=== PATIENT | female | born 1970 | race Caucasian/White ===

== ENCOUNTER 2016-08-24 21:42 | Observation (INO) ==
[2016-08-24 23:25] LABS: Bilirubin,Urine Negative (Negative); Blood,Urine Negative (Negative); Clarity,Urine Cloudy (Clear); Color,Urine Yellow (Yellow); Glucose,Urine (UA) Normal (Normal); Ketones,Urine Negative (Negative); PH,Urine 6.5 pH Units (5.0-8.0); Protein,Urine Negative (Neg-Trace); Specific Gravity,Urine 1.024 (1.010-1.025); Urobilinogen,Urine Normal (Normal)
[2016-08-24 23:26] LABS: Leukocyte Esterase,Urine Small (Negative); Nitrite,Urine Positive (Negative)
[2016-08-24 23:27] LABS: Bacteria,Urine Many per hpf (None-Few); Hyaline Casts,Urine None Seen per lpf (None-Few); RBC,Urine 0-3 per hpf (0-3); Squamous Epithelial Cell,Urine Many per lpf (None-Few)
[2016-08-25 00:29] LABS: Alanine Aminotransferase 16 Units/L (0-55); Albumin 3.5 g/dL (3.5-5.0); Albumin/Globulin Ratio 0.9 (1.1-2.2); Alkaline Phosphatase 54 Units/L (38-126); Aspartate Amino Transferase 15 Units/L (5-34); BUN/Creatinine Ratio 14 (6-26); Bilirubin,Direct 0.2 mg/dL (0.0-0.5); Bilirubin,Indirect 0.3 mg/dL (0.0-1.2); Bilirubin,Total 0.5 mg/dL (0.2-1.2); Blood Urea Nitrogen 13 mg/dL (7-20); Calcium 9.3 mg/dL (8.6-10.8); Carbon Dioxide 27 mEq/L (19-29); Chloride 106 mEq/L (98-109); Globulin 3.9 g/dL (2.4-3.5); Glucose 80 mg/dL (70-99); Lipase 43 Units/L (8-78); Osmolality,Calculated 287 (280-300); Potassium 3.7 mEq/L (3.5-4.5); Sodium 139 mEq/L (136-145); Total Protein 7.4 g/dL (6.0-8.3); eGFR For African Americans > 60 (> 60); eGFR For Non-African Americans > 60 (> 60)
--- NOTE | 2016-08-25 00:55 | Emergency Department Note ---
Disposition Clinical Impression: Appendicitis Disposition: Admitted As Inpatient Condition: Good Time of Disposition: 06:12 Abdominal Pain HPI - General Chief Complaint: ED Abdominal Pain Stated Complaint: abd pain Time Seen by Provider: 08/24/16 23:52 Source: patient Mode of arrival: private vehicle Limitations: no limitations Nursing Notes Reviewed: Yes Vital Signs Reviewed: Yes - History of Present Illness HPI Narrative: 46-year-old female patient presents to the emergency department with complaint of abdominal pain. Patient states that this pain began approximately 36 hours ago and has progressively worsened. Patient states that her pain began in her upper abdomen but has now migrated to her right lower quadrant. She denies any fever, chills, nausea or vomiting. She denies any recent illnesses. She denies any previous abdominal surgeries. She denies any recent contact with sick individuals who have had similar symptoms. She denies any urinary complaints. She denies any vaginal discharge or bleeding. Pt Subjective Complaint: abdominal pain Onset (ago): hour(s) Consistency: intermittent, Worsening Location: periumbilical, RLQ Pain Severity: moderate Pain Scale: 5 Quality: fullness, dull Radiation: none Migration to: RLQ Improves with: nothing Worsens with: nothing Associated symptoms: Reports: denies other symptoms - Related Data Home Medications Medication Instructions Recorded Confirmed Acetaminophen/Butalbital/Caffe 1 tab PO DAILY PRN 08/25/16 08/25/16 [Fioricet] Previous Rx's Medication Instructions Recorded Docusate [Colace] 100 mg PO BID #30 capsule 08/26/16 OxyCODONE/APAP 5/325 [Percocet 1 each PO Q4HR PRN #30 tablet 08/26/16 5/325 MG] Sulfamethoxazole/Trimeth DS 1 each PO BID #10 tablet 08/26/16 [Bactrim DS] Allergies Allergy/AdvReac Type Severity Reaction Status Date / Time No Known Allergies Allergy Verified 08/24/16 23:07 All systems ED: reviewed and negative except as stated. Constitutional: Denies: fever, chills Cardiovascular: Denies: chest pain Respiratory: Denies: cough, dyspnea Gastrointestinal: Reports: abdominal pain. Denies: nausea, vomiting, diarrhea, constipation Musculoskeletal: Denies: back pain, neck pain Integumentary: Denies: rash, abrasion, lesions Neurological: Denies: headache Psychiatric: Denies: anxiety, depression, suicidal thoughts, homicidal thoughts Abdominal Pain PMH - Past Medical History Medical history: Reports: no medical history Female Surgical History: Reports: Adenoidectomy, Psychiatric history: Reports: no psych history - Social History Smoking status: Never smoker Alcohol use: Reports: none Drug use: Reports: none Physical Exam - General Limitations: no limitations General appearance: alert, in no apparent distress - Head Head exam: atraumatic, normocephalic, normal inspection - Eye Eye exam: Present: normal appearance, PERRL - Neck Neck exam: Present: normal inspection, full ROM, trachea midline - Chest Chest inspection: Present: normal inspection, symmetric chest wall rise - Respiratory Respiratory exam: Present: normal lung sounds bilaterally. Absent: respiratory distress - Cardiovascular Cardiovascular exam: Present: regular rate, normal rhythm, normal heart sounds - Abdominal Exam Abdominal exam: Present: soft, tenderness, normal bowel sounds, tenderness at [place]Bur[place]'s Point. Absent: distention, guarding, rebound, rigidity, Brown's sign, Rovsing's sign Abdominal tenderness: Present: RLQ, mild - Extremities Exam Extremities exam: Present: normal inspection, full ROM. Absent: tenderness, pedal edema - Expanded Lower Extremity Exam Gait: observed and normal - Back Exam Back exam: Present: normal inspection, full ROM. Absent: tenderness - Neurological Exam Neurological exam: Present: alert, oriented X3 - Psychiatric Psychiatric exam: Present: normal affect, normal mood - Skin Skin exam: Present: warm, dry, intact, normal color Course Vital Signs Temperature 97.9 F 08/24/16 23:03 Pulse Rate 70 08/24/16 23:03 Respiratory Rate 16 08/24/16 23:03 Blood Pressure 112/77 08/24/16 23:03 O2 Sat by Pulse Oximetry 98 08/24/16 23:03 Temperature 98.1 F 08/26/16 10:55 Pulse Rate 93 08/26/16 10:55 Respiratory Rate 17 08/26/16 10:55 Blood Pressure 114/61 08/26/16 10:55 O2 Sat by Pulse Oximetry 97 08/26/16 10:55 Oxygen Delivery Oxygen Delivery Room Air Abdominal Pain - Lab Data Lab results reviewed: Yes I reviewed the patient's lab results. Result diagrams: 08/26/16 04:30 08/26/16 04:30 Lab Results 08/24/16 08/24/1617 Range/Units 23:14 23:14 00:00 WBC (4.3-11.1) K/mcL RBC (3.82-4.97) M/mcL Hgb (11.5-15.4) g/dL Hct (35.3-44.9) % MCV (83.0-100.0) fL MCH (28.0-33.3) pg MCHC (31.6-35.5) g/dL RDW (11.5-14.5) % Plt Count (140-400) K/mcL MPV (9.4-12.4) fL Immature Gran % (0-4) % Seg Neutrophils % % Lymphocytes % % Monocytes % % Eosinophils % % Basophils % % Neutrophils # (1.6-8.9) K/mcL Lymphocytes # (0.6-4.6) K/mcL Monocytes # (0.0-1.3) K/mcL Eosinophils # (0.0-0.6) K/mcL Basophils # (0.0-0.2) K/mcL Immature Plt Fraction (1.1-6.1) % Sodium 139 (136-145) mEq/L Potassium 3.7 (3.5-4.5) mEq/L Chloride 106 (98-109) mEq/L Carbon Dioxide 27 (19-29) mEq/L BUN 13 (7-20) mg/dL Creatinine 0.95 (0.57-1.11) mg/dL Est GFR ( Amer) > 60 (> 60) Est GFR (Non-Af Amer) > 60 (> 60) BUN/Creatinine Ratio 14 (6-26) Glucose 80 (70-99) mg/dL Calculated Osmolality 287 (280-300) Calcium 9.3 (8.6-10.8) mg/dL Total Bilirubin 0.5 (0.2-1.2) mg/dL Direct Bilirubin 0.2 (0.0-0.5) mg/dL Indirect Bilirubin 0.3 (0.0-1.2) mg/dL AST 15 (5-34) Units/L ALT 16 (0-55) Units/L Alkaline Phosphatase 54 (38-126) Units/L Serum Total Protein 7.4 (6.0-8.3) g/dL Albumin 3.5 (3.5-5.0) g/dL Globulin 3.9 H (2.4-3.5) g/dL Albumin/Globulin Ratio 0.9 L (1.1-2.2) Lipase 43 (8-78) Units/L Urine Color Yellow (Yellow) Urine Clarity Cloudy A (Clear) Urine pH 6.5 (5.0-8.0) pH Units Ur Specific [place] 1.024 (1.010-1.025) Urine Protein Negative (Neg-Trace) mg/dL Urine Glucose (UA) Normal (Normal) mg/dL Urine Ketones Negative (Negative) mg/dL Urine Blood Negative (Negative) Urine Nitrite Positive A (Negative) Urine Bilirubin Negative (Negative) Urine Urobilinogen Normal (Normal) mg/dL Ur Leukocyte Esterase Small H (Negative) Urine Microscopic RBC 0-3 (0-3) per hpf Urine Microscopic WBC 5-15 H (0-3) per hpf Ur Squamous Epith Cells Many H (None-Few) per lpf Urine Bacteria Many H (None-Few) per hpf Hyaline Casts None Seen (None-Few) per lpf Ur Culture Indicated? YES A (NO) Urine Test Negative (Negative) Specimen Rejected 08/25/16 08/25/16 Range/Units 00:00 01:25 WBC 9.3 (4.3-11.1) K/mcL RBC 4.63 (3.82-4.97) M/mcL Hgb 13.7 (11.5-15.4) g/dL Hct 41.6 (35.3-44.9) % MCV 89.8 (83.0-100.0) fL MCH 29.6 (28.0-33.3) pg MCHC 32.9 (31.6-35.5) g/dL RDW 13.3 (11.5-14.5) % Plt Count 301 (140-400) K/mcL MPV 9.6 (9.4-12.4) fL Immature Gran % 0.4 (0-4) % Seg Neutrophils % 50.5 % Lymphocytes % 39.9 % Monocytes % 7.6 % Eosinophils % 1.3 % Basophils % 0.3 % Neutrophils # 4.7 (1.6-8.9) K/mcL Lymphocytes # 3.7 (0.6-4.6) K/mcL Monocytes # 0.7 (0.0-1.3) K/mcL Eosinophils # 0.1 (0.0-0.6) K/mcL Basophils # 0.0 (0.0-0.2) K/mcL Immature Plt Fraction 5.4 (1.1-6.1) % Sodium (136-145) mEq/L Potassium (3.5-4.5) mEq/L Chloride (98-109) mEq/L Carbon Dioxide (19-29) mEq/L BUN (7-20) mg/dL Creatinine (0.57-1.11) mg/dL Est GFR ( Amer) (> 60) Est GFR (Non-Af Amer) (> 60) BUN/Creatinine Ratio (6-26) Glucose (70-99) mg/dL Calculated Osmolality (280-300) Calcium (8.6-10.8) mg/dL Total Bilirubin (0.2-1.2) mg/dL Direct Bilirubin (0.0-0.5) mg/dL Indirect Bilirubin (0.0-1.2) mg/dL AST (5-34) Units/L ALT (0-55) Units/L Alkaline Phosphatase (38-126) Units/L Serum Total Protein (6.0-8.3) g/dL Albumin (3.5-5.0) g/dL Globulin (2.4-3.5) g/dL Albumin/Globulin Ratio (1.1-2.2) Lipase (8-78) Units/L Urine Color (Yellow) Urine Clarity (Clear) Urine pH (5.0-8.0) pH Units Ur Specific [place] (1.010-1.025) Urine Protein (Neg-Trace) mg/dL Urine Glucose (UA) (Normal) mg/dL Urine Ketones (Negative) mg/dL Urine Blood (Negative) Urine Nitrite (Negative) Urine Bilirubin (Negative) Urine Urobilinogen (Normal) mg/dL Ur Leukocyte Esterase (Negative) Urine Microscopic RBC (0-3) per hpf Urine Microscopic WBC (0-3) per hpf Ur Squamous Epith Cells (None-Few) per lpf Urine Bacteria (None-Few) per hpf Hyaline Casts (None-Few) per lpf Ur Culture Indicated? (NO) Urine Test (Negative) Specimen Rejected Clotted - Radiology Data Radiology results reviewed: Yes I reviewed the patient's radiology results. Attestation Statement - Attestation Attestation: I personally interviewed and examined this patient and my medical decision- making was reviewed with the KIMBERLY, Adrian Mendoza. I agree with the documented findings, disposition and treatment plan as described in the documentation. Patient is a 46-year-old white female otherwise healthy presents to the emergency department tonight with a 2 day history of gradually worsening right lower quadrant abdominal pain associated with nausea. Patient denies any fevers or chills, no vomiting or bowel changes, no urinary symptoms or flank pain. Patient denies any abnormal vaginal bleeding or spotting. Patient states the pain the entire time is been located in the right lower quadrant is nonradiating and gradually worsening in intensity. Patient states tonight she noticed that the pain was worse if she moved. Lab evaluation patient's comments metabolic panel and lipase are within normal limits her urinalysis does show cystitis. CBC is pending at this time. CT scan without IV contrast shows acute appendicitis with periappendiceal stranding. At this time we will inform the patient CT results, make her nothing by mouth status, initiate IV antibiotics and speak with Dr. Linares who is on for general surgery and admitted the patient for acute appendicitis. Pt with cystitis per UA , will initiate antibx IV. Serial abdominal exam patient is locally tender in the right lower quadrant but no peritoneal signs at this time and she is hemodynamically stable.
[2016-08-25] MEDS ORDERED: Piperacillin/Tazobactam 3.375 GM in D5% in Water (Mini-Bag+) 100 ML IVPB ONE (01:44)
[2016-08-25] MEDS ORDERED: Ondansetron 4 MG/2 ML VIAL IVP ONE (01:45)
[2016-08-25 02:30] LABS: Basophils % 0.3 %; Eosinophils # 0.1 K/mcL (0.0-0.6); Eosinophils % 1.3 %; Hematocrit 41.6 % (35.3-44.9); Hemoglobin 13.7 g/dL (11.5-15.4); Immature Granulocytes % 0.4 % (0-4); Immature Platelets 5.4 % (1.1-6.1); Lymphocytes # 3.7 K/mcL (0.6-4.6); Lymphocytes % 39.9 %; Mean Corpuscular HGB Conc 32.9 g/dL (31.6-35.5); Mean Corpuscular Hemoglobin 29.6 pg (28.0-33.3); Mean Corpuscular Volume 89.8 fL (83.0-100.0); Mean Platelet Volume 9.6 fL (9.4-12.4); Monocytes # 0.7 K/mcL (0.0-1.3); Monocytes % 7.6 %; Neutrophils # 4.7 K/mcL (1.6-8.9); Platelet Count 301 K/mcL (140-400); Red Blood Count 4.63 M/mcL (3.82-4.97); Red Cell Distribution Width 13.3 % (11.5-14.5); Segmented Neutrophils % 50.5 %
[2016-08-25 02:40] LABS: INR 1.1; Prothrombin Time 11.5 Seconds (9.4-12.1)
[2016-08-25 02:43] LABS: Activated Partial Thrombo Time 26.2 Seconds (26.0-36.0)
[2016-08-25] MEDS: *HR* Morphine 2 MG/ML SYRINGE IVP SCH ×4 (03:40→16:02)
--- NOTE | 2016-08-25 10:33 | General Surg History&Physical ---
<Ann Wallace A - Last Filed: 08/25/16 10:43> Date of Encounter: 08/25/16 Time of Encounter: 10:00 Assessment and Plan (1) RLQ abdominal pain Current Visit: Yes Status: Acute The assessment and plan as outlined above was discussed with the patient and/or family members who expressed understanding and agreement. All questions were answered. NPO IV fluids IV antibiotics- Zosyn Discussed the risks, benefits, alternatives and expected outcomes with the patient and she is in agreement to proceed to the operating room today with Dr. Linares for a laparosocpic appendectomy Supportive care/pain control Incentive Spirometer every 1 hour while awake (2) UTI (urinary tract infection) Current Visit: Yes Status: Acute The assessment and plan as outlined above was discussed with the patient and/or family members who expressed understanding and agreement. All questions were answered. Await culture results Treat empirically with Zosyn Qualifiers: Urinary tract infection type: site unspecified Hematuria presence: without hematuria Qualified Code(s): N39.0 - Urinary tract infection, site not specified (3) DVT prophylaxis Current Visit: Yes Status: Acute The assessment and plan as outlined above was discussed with the patient and/or family members who expressed understanding and agreement. All questions were answered. Ambulate hallways TID EPCDs to bilateral lower extremities for DVT prophylaxis History of Present Illness Chief complaint: RLQ abdominal pain HPI: Ms. James is a 46 year old female with no significant past medical history. She presented to the ED with complaints of a 2 day history of abdominal pain. She states that the pain started suddenly on Wednesday evening and was located around her umbilicus. She states that the pain slowly moved to her RLQ. The pain waxes and waines. Denies any radiating factors. She has never experienced pain like this in the past. She denies any changes in bowel habits and states that she did have a normal bowel movement yesterday. Denies any diarrhea/constipation/ melena/hematochezia. Denies any fevers/chills. Admits to nausea with increase in pain but denies any vomiting. Denies any difficulty with urination. Admits to loss of appetite. Denies any shortness of breath of chest pains. Past Med Surg Social Fam HX - Past Medical History Source: patient Medical history: no medical history Psychiatric history: no psych history - Past Surgical History Surgical History: (X3), orthopedic, other (Bilateral wrist (tendon)), other (Abdominoplasty) - Social History Smoking Status: Never smoker Alcohol use: none Drug use: none Occupational status: employed (Works for [employer] department at [employer]) Current living situation: Home - Independent Activity Level: Independent ambulation Recent Out of Country Travel Within the Last 8 Weeks: No Exposure or Possible Exposure to Illness During Travel: No - Family History Daughter Name: Curtis Mahoney Age: 25 Living Status: Still Living Hx Family Cardiac Disorders: Yes (Tachycardia) Hx Family Respiratory Disorders: No Hx Family Cancer: No Hx Family GI Disorders: No Hx Family Genitourinary Disorders: Yes (Hx of hematuria) Hx Family Endocrine Disorder: No Hx Family Musculoskeletal Disorders: Yes (weakness in legs, Fibromyalgia) Hx Family Neuromuscular Disorders: Yes (Neuropathy in arms/legs) Hx Family Neurologic Disorders: No Hx Family HEENT Disorders: No Hx Family Autoimmune Disorders: No Hx Family Reproductive Disorders: No Hx Family Psychosocial Disorders: Yes (Anxiety) Hx Family Medical Disorders: No Mother Living Status: Still Living Hx Family Neuromuscular Disorders: Yes (Neuropathy) Father Living Status: Still Living Hx Family Endocrine Disorder: Yes (Diabetes Mellitus) Medications and Allergies Acetaminophen/Butalbital/Caffe [Fioricet] 1 tab PO DAILY PRN 08/25/16 [History] Docusate [Colace] 100 mg PO BID #30 capsule 08/25/16 [Rx] OxyCODONE/APAP 5/325 [Percocet 5/325 MG] 1 each PO Q4HR PRN #30 tablet 08/25/16 [Rx] Allergies No Known Allergies Allergy (Verified 08/24/16 23:07) Review of Systems All systems PM: reviewed and no additional remarkable complaints except as stated (in the HPI) All systems PM: A 10-system review of systems was performed and is negative for pertinent findings except as documented above in the HPI. General Surgery Exam Initial Vital Signs Temp Pulse Resp BP Pulse Ox 97.9 F 70 16 112/77 98 08/24/16 23:03 08/24/16 23:03 08/24/16 23:03 08/24/16 23:03 08/24/16 23:03 - General physical appearance well developed, well nourished, no distress - Eyes normal ocular movement - ENT normal mucosa, atraumatic, normocephalic - Neck trachea midline - Respiratory normal expansion, normal respiratory effort, clear to auscultation - Abdomen Abdomen general surgery: Present: bowel sounds present, soft, tender Abdominal Tenderness: Present: RLQ, suprapubic - Integumentary Integumentary general surgery: Present: warm and dry - Neurologic Present: CN 2-12 grossly intact - Musculoskeletal Present: normal gait, normal posture - Psychiatric Psychiatric general surgery: Present: appropriate, oriented to person, oriented to place, oriented to time, speech is normal, memory intact Results - Labs 08/25/16 01:25 08/25/16 00:00 Abnormal lab results Globulin 3.9 g/dL (2.4-3.5) H 08/25/16 00:00 Albumin/Globulin Ratio 0.9 (1.1-2.2) L 08/25/16 00:00 Urine Clarity Cloudy (Clear) A 08/24/16 23:14 Urine Nitrite Positive (Negative) A 08/24/16 23:14 Ur Leukocyte Esterase Small (Negative) H 08/24/16 23:14 Urine Microscopic WBC 5-15 per hpf (0-3) H 08/24/16 23:14 Ur Squamous Epith Cells Many per lpf (None-Few) H 08/24/16 23:14 Urine Bacteria Many per hpf (None-Few) H 08/24/16 23:14 Ur Culture Indicated? YES (NO) A 08/24/16 23:14 All other labs normal. - Imaging CT scan - abdomen: report reviewed CT scan - pelvis: report reviewed Additional studies: Abdomen/Pelvis CT 08/25/16 00:37 IMPRESSION: Findings are suggestive of but not diagnostic for appendicitis. D/ / Hemanth Ortiz MD / Hemanth Ortiz MD Interpreting Provider: Hemanth Ortiz MD - Attending Attestation I examined this patient and my medical decision-making was reviewed with the ELEVATOR REPAIRER HELPER/PA/Advanced Practice Nurse/Resident Physician. I agree with the documented findings, disposition and treatment plan as described except to the extent set forth below. <Merna Linares - Last Filed: 08/26/16 10:02> Assessment and Plan (1) Acute appendicitis Current Visit: Yes Status: Acute discussed with patient that her symptoms are consistent with acute appendicitis and the CT scan suggests appendicitis. She has been receiving zosyn, is npo, receiving IVF and prn pain control. Will plan a laparoscopic appendectomy, possible open and risks and beneftis discussed with patient and she wishes to proceed. The assessment and plan as outlined above was discussed with the patient and/or family members who expressed understanding and agreement. All questions were answered. Qualifiers: Acute appendicitis type: unspecified acute appendicitis type Qualified Code (s): K35.80 - Unspecified acute appendicitis History of Present Illness HPI: Ms. James is a 46 year old female who developed mid abdominal pain on wednesday which she describes as sharp which has radiated to her RLQ. She denies emesis but had some nausea. No diarrhea. No dysuria. NO fevers, chills or night sweats. Review of Systems All systems PM: A 10-system review of systems was performed and is negative for pertinent findings except as documented above in the HPI. General Surgery Exam Initial Vital Signs Temp Pulse Resp BP Pulse Ox 97.9 F 70 16 112/77 98 08/24/16 23:03 08/24/16 23:03 08/24/16 23:03 08/24/16 23:03 08/24/16 23:03 - General physical appearance well nourished, no distress - Eyes PERRL, normal ocular movement - Neck trachea midline - Cardiovascular Cardiovascular exam: Present: RRR - Abdomen Abdomen general surgery: Present: bowel sounds present, soft, tender. Absent: guarding, rebound Abdominal Tenderness: Present: RLQ - Integumentary Integumentary general surgery: Present: warm and dry. Absent: diaphoresis - Psychiatric Psychiatric general surgery: Present: A&Ox3, speech is normal Results - Labs 08/26/16 04:30 08/26/16 04:30 Abnormal lab results Neutrophils # 9.3 K/mcL (1.6-8.9) H 08/26/16 04:30 Sodium 135 mEq/L (136-145) L 08/26/16 04:30 Calcium 8.0 mg/dL (8.6-10.8) L 08/26/16 04:30 Globulin 3.9 g/dL (2.4-3.5) H 08/25/16 00:00 Albumin/Globulin Ratio 0.9 (1.1-2.2) L 08/25/16 00:00 Urine Clarity Cloudy (Clear) A 08/24/16 23:14 Urine Nitrite Positive (Negative) A 08/24/16 23:14 Ur Leukocyte Esterase Small (Negative) H 08/24/16 23:14 Urine Microscopic WBC 5-15 per hpf (0-3) H 08/24/16 23:14 Ur Squamous Epith Cells Many per lpf (None-Few) H 08/24/16 23:14 Urine Bacteria Many per hpf (None-Few) H 08/24/16 23:14 Ur Culture Indicated? YES (NO) A 08/24/16 23:14 Diabetes panel 08/26/16 Range/Units 04:30 Sodium 135 L (136-145) mEq/L Potassium 4.3 (3.5-4.5) mEq/L Chloride 108 (98-109) mEq/L Carbon Dioxide 19 (19-29) mEq/L BUN 12 (7-20) mg/dL Creatinine 0.84 (0.57-1.11) mg/dL Glucose 97 (70-99) mg/dL Calcium 8.0 L (8.6-10.8) mg/dL Calcium panel 08/26/16 Range/Units 04:30 Calcium 8.0 L (8.6-10.8) mg/dL Pituitary panel 08/26/16 Range/Units 04:30 Sodium 135 L (136-145) mEq/L Potassium 4.3 (3.5-4.5) mEq/L Chloride 108 (98-109) mEq/L Carbon Dioxide 19 (19-29) mEq/L BUN 12 (7-20) mg/dL Creatinine 0.84 (0.57-1.11) mg/dL Glucose 97 (70-99) mg/dL Calcium 8.0 L (8.6-10.8) mg/dL Adrenal panel 08/26/16 Range/Units 04:30 Sodium 135 L (136-145) mEq/L Potassium 4.3 (3.5-4.5) mEq/L Chloride 108 (98-109) mEq/L Carbon Dioxide 19 (19-29) mEq/L BUN 12 (7-20) mg/dL Creatinine 0.84 (0.57-1.11) mg/dL Glucose 97 (70-99) mg/dL Calcium 8.0 L (8.6-10.8) mg/dL All other labs normal. - Imaging CT scan - abdomen: report reviewed, image reviewed CT scan - pelvis: report reviewed, image reviewed (images personally reviewed by myself and discussed with patient) - Attending Attestation I examined this patient and my medical decision-making was reviewed with the ELEVATOR REPAIRER HELPER/PA/Advanced Practice Nurse/Resident Physician. I agree with the documented findings, disposition and treatment plan as described except to the extent set forth below.
[2016-08-25] MEDS ORDERED: Ondansetron 4 MG/2 ML VIAL IVP PRN ×2 (10:39→20:36)
[2016-08-25] MEDS ORDERED: Naloxone 0.4 MG/ML INJ IVP PRN ×4 (10:39→20:36)
[2016-08-25] MEDS ORDERED: *HR* Promethazine 25 MG/ML VIAL IVP PRN ×3 (10:40→20:36)
[2016-08-25] MEDS ORDERED: 0.9 % Sodium Chloride 1,000 ML IVC SCH ×2 (10:45)
[2016-08-25] MEDS ORDERED: Piperacillin/Tazobactam 3.375 GM in D5% in Water (Mini-Bag+) 100 ML IVPB SCH ×2 (16:00)
[2016-08-25] MEDS ORDERED: CefOXitin 1,000 MG VIAL ONE (16:54)
--- NOTE | 2016-08-25 17:06 | Anesthesia Evaluation PreOp ---
Date of Encounter: 08/25/16 Time of Encounter: 17:04 - Past History Planned Operation: Lap appy Cardiac History: Denies any Significant Hx Pulmonary History: Denies Any Significant HX CAPACITOR PACK PRESS OPERATOR History: Denies Any Significant HX Other Medical History: Denies Any Significant HX Anesthesia History: No Prior Anesthetic Complications Alcohol Use: none Drug use: none Medications and Allergies Acetaminophen/Butalbital/Caffe [Fioricet] 1 tab PO DAILY PRN 08/25/16 [History] Allergies No Known Allergies Allergy (Verified 08/24/16 23:07) - Meds/Allergy Pre-op Review Medications Reviewed: Yes Allergies Reviewed: Yes Beta Blockers on Current Med List: No Anesthesia Results - Labs 08/25/16 01:25 08/25/16 00:00 Anesthesia Exam Last Vital Signs Temp 98.5 F 08/25/16 15:50 Pulse 83 08/25/16 15:50 Resp 16 08/25/16 15:50 BP 94/63 08/25/16 15:50 Pulse Ox 98 08/25/16 15:50 Weight: 61 kg - HEENT Pupil (Motor): Pupils equal, EOMI Mallampati: II Teeth: Normal Oral Opening: Greater than 3 - CAPACITOR PACK PRESS OPERATOR LOC: Oriented CAPACITOR PACK PRESS OPERATOR Motor: Normal RUE, Normal LUE, Normal RLE, Normal LLE, Normal Face CAPACITOR PACK PRESS OPERATOR Sensory: Normal: RUE, LUE, RLE, LLE, Face - Cardiac Rhythm: Regular Murmur: None - Pulmonary Breath Sounds: bilateral Clear Respiratory Effort: Symmetrical Anesthesia Assess/Plan ASA Score: 1 Modified [place] Scale for Level of Consciousness: Cooperative, oriented, and tranquil Anesthetic Plan: General Monitoring Plan: Standard Monitors Recovery Plan: PACU
[2016-08-25] MEDS ORDERED: *HR* FentaNYL (PF) 100 MCG/2 ML VIAL ONE (17:30)
[2016-08-25] MEDS ORDERED: *HR* Midazolam HCl 2 MG/2 ML VIAL ONE (17:30)
[2016-08-25] MEDS ORDERED: Lidocaine -MPF 2% 2 ML VIAL ONE (17:31)
[2016-08-25] MEDS ORDERED: *HR* Succinylcholine 200 MG/10 ML VIAL IVP ONE (17:31)
[2016-08-25] MEDS ORDERED: *HR* Propofol 200 MG/20 ML VIAL IVP ONE (17:31)
[2016-08-25] MEDS ORDERED: Lidocaine -MPF 4% 5 ML AMPUL ONE (18:19)
[2016-08-25] MEDS ORDERED: *HR* Rocuronium Bromide 50 MG/5 ML VIAL ONE (18:46)
[2016-08-25] MEDS ORDERED: Dexamethasone 4 MG/ML VIAL ONE (18:48)
[2016-08-25] MEDS ORDERED: Ondansetron 4 MG/2 ML VIAL ONE (18:48)
[2016-08-25] MEDS ORDERED: *HR* HYDROmorphone (PF) 1 MG/ML SYRINGE IVP PRN (18:50)
[2016-08-25] MEDS ORDERED: *HR* Labetalol 100 MG/20 ML MDV IVP PRN (18:50)
[2016-08-25] MEDS ORDERED: Neostigmine Methylsulfate 3 MG/3 ML SYRINGE ONE (18:58)
--- NOTE | 2016-08-25 19:27 | Operative Note ---
Date of procedure: 08/25/16 Pre-op diagnosis: acute appendicits Post-op diagnosis: same Procedure: Laparoscopic appendectomy Complications: none immediate Anesthesia: GETA, local Local Anesthetics: Isovue 300 Intravenous (cc) (30) Surgeon: Merna Linares Estimated blood loss (cc): 3 Specimen: appendix Condition: stable Disposition: PACU Procedure in Detail: The patient was brought into the operating suite and placed supine on the operating table. Sign-in was performed and everyone was in agreement. Anesthesia was induced and patient was endotracheally intubated by anesthesia without incident. An OG tube was placed by anesthesia. The abdomen was prepped and draped in the usual sterile fashion. A timeout was performed and again everyone was in agreement. A supraumbilical incision was made through the skin and the subcutaneous tissue with an 11 blade. Towel clamps were placed on either side of the umbilicus for retraction. S-retractors were used to dissect down to the anterior abdominal wall linea alba fascia. A Veress needle was placed into this incision and a water drop test confirmed placement and the abdomen was insufflated. We then entered the abdomen with the 5 mm 0 degree laparoscope on a 5 mm X-alka trocar. The area under entry was visualized and there was no bleeding and no apparent bowel injury. We placed a suprapubic 5 mm port under direct visualization after first incising the skin with an 11 blade. The laparoscope was placed through this and we exchanged the supraumbilical port for a 12 mm port under direct visualization. We then placed another 5 mm port in the left lower quadrant position under direct visualization after first incising the skin with an 11 blade. The patient was placed in slight Trendelenburg left side down position. The cecum was located as was the appendix. The appendix was grasped and retracted anteriorly and caudally with a laparoscopic Perry. A [place] was used to dissect between the mesoappendix and the appendix at the base of the cecum. The mesoappendix was transected with a laparoscopic flex-ex ETS stapler using a white load. The appendix was transected at the base of the cecum with the same stapler utilizing a white load. The appendix was placed in a laparoscopic Endo Catch bag and removed via the supraumbilical incision site. Both staple lines were evaluated and there was no bleeding and both staple lines were intact. The area was irrigated with sterile saline which was then suctioned free from the abdomen. The insufflation was suctioned free from the abdomen and all trochars removed. We closed the abdominal wall at the supraumbilical incision site with an 0 Vicryl [id number] stitch. A 30 cc of 0.5% Marcaine was injected subcutaneously at the 3 port sites. The skin at the two 5 mm port sites was closed with 4-0 Monocryl interrupted subcuticular stitches. The skin at the supraumbilical incision site was closed with a 4-0 Monocryl running subcuticular stitch. Steri-Strips were applied to the wounds. The patient was extubated in the OR and tolerated the procedure well and was taken to PACU after all lap and instrument counts were correct at the end of the case.
--- NOTE | 2016-08-25 19:33 | Discharge Summary ---
<Merna Linares - Last Filed: 08/25/16 19:31> Date of Encounter: 08/26/16 Time of Encounter: 10:00 - Discharge Diagnosis (1) Acute appendicitis Priority: Primary Status: Acute Qualifiers: Acute appendicitis type: unspecified acute appendicitis type Qualified Code (s): K35.80 - Unspecified acute appendicitis - Discharge Medications Prescriptions: OxyCODONE/APAP 5/325 [Percocet 5/325 MG] 1 each PO Q4HR PRN #30 tablet PRN Reason: Pain Docusate [Colace] 100 mg PO BID #30 capsule Sulfamethoxazole/Trimeth DS [Bactrim DS] 1 each PO BID #10 tablet Home Medications: Acetaminophen/Butalbital/Caffe [Fioricet] 1 tab PO DAILY PRN 08/25/16 [History] Docusate [Colace] 100 mg PO BID #30 capsule 08/25/16 [Rx] OxyCODONE/APAP 5/325 [Percocet 5/325 MG] 1 each PO Q4HR PRN #30 tablet 08/25/16 [Rx] Sulfamethoxazole/Trimeth DS [Bactrim DS] 1 each PO BID #10 tablet 08/26/16 [Rx] Allergies/Adverse Reactions: Allergies No Known Allergies Allergy (Verified 08/24/16 23:07) General Surgery Exam Initial Vital Signs Temp Pulse Resp BP Pulse Ox 97.9 F 70 16 112/77 98 08/24/16 23:03 08/24/16 23:03 08/24/16 23:03 08/24/16 23:03 08/24/16 23:03 - General physical appearance well developed, well nourished, no distress - Eyes PERRL, normal ocular movement - ENT normal mucosa - Respiratory normal expansion, clear to auscultation - Cardiovascular Cardiovascular exam: Present: RRR - Abdomen Abdomen general surgery: Present: bowel sounds present, soft, tender ( Appropriate and expected postoperative tenderness) - Incision Incision: Present: clean and dry, intact - Integumentary Integumentary general surgery: Present: warm and dry, no abnormal pigmentation - Neurologic Present: CN 2-12 grossly intact - Musculoskeletal Present: normal gait, normal posture - Psychiatric Psychiatric general surgery: Present: A&Ox3, speech is normal Date of admission: 08/25/16 01:55 Primary care physician: Garrett Nova MD Discharging clinician: Merna Linares Anticipated date of discharge: 08/26/16 - Patient Status Disposition: Home, Self-Care Condition: Good Overall status at discharge: patient is back to baseline - Discharge Instructions Instructions: Laparoscopic Appendectomy (DC) Follow Up With: Garrett Nova MD [Primary Care Provider] - Ann Wallace CNP [Advanced Practice Nurse] - 09/07/16 11:00 am (2 weeks post op check) Forms: Work/School Release Additional Instructions: No lifting more than 20 pounds for 2 weeks. Okay to take a shower in 24 hours. No tub baths or pools for 1 week. Okay to ride in the car wearing a seatbelt and climb steps. No driving until off narcotics for 24 hours and able to react safely Remove Steri-Strips in 1 week. - Diet and Activity Activity: increase activity as tolerated Diet: advance to your usual diet - Hospital Course Hospital course: Ms. James is a 46 year old female who came into the hospital with less than 24 hours of abdominal pain. CT scan was done showing early appendicitis. Patient was taken to the operating suite on August 25 for an uncomplicated laparoscopic appendectomy. Postoperatively her pain initially was controlled with IV pain medication and transitioned to by mouth. She was started on a clear liquid diet and advanced as she tolerated. She was up ambulating well having appropriate bowel and bladder function. She was discharged home in stable condition. - Time Spent with Patient Total time spent providing and/or coordinating discharge services: Labs on day of discharge: Labs from last 24 hours 08/25/16 02:25 PT 11.5 INR 1.1 APTT 26.2 <Ann Wallace - Last Filed: 08/26/16 12:13> - Discharge Diagnosis (1) RLQ abdominal pain Priority: Primary Status: Acute (2) UTI (urinary tract infection) Priority: Secondary Status: Acute Qualifiers: Urinary tract infection type: site unspecified Hematuria presence: without hematuria Qualified Code(s): N39.0 - Urinary tract infection, site not specified (3) DVT prophylaxis Priority: Secondary Status: Acute General Surgery Exam Initial Vital Signs Temp Pulse Resp BP Pulse Ox 97.9 F 70 16 112/77 98 08/24/16 23:03 08/24/16 23:03 08/24/16 23:03 08/24/16 23:03 08/24/16 23:03 Date of admission: 08/25/16 01:55 Primary care physician: Garrett Nova MD - Hospital Course Hospital course: Ms. James is a 46 year old female - Time Spent with Patient Total time spent providing and/or coordinating discharge services: Less than 30 minutes Labs on day of discharge: Labs from last 24 hours 08/26/16 08/26/16 04:30 04:30 WBC 10.5 RBC 4.40 Hgb 12.8 Hct 39.6 MCV 90.0 MCH 29.1 MCHC 32.3 RDW 13.1 Plt Count 257 MPV 9.7 Immature Gran % 0.4 Seg Neutrophils % 88.8 Lymphocytes % 8.8 Monocytes % 1.9 Eosinophils % 0.0 Basophils % 0.1 Neutrophils # 9.3 H Lymphocytes # 0.9 Monocytes # 0.2 Eosinophils # 0.0 Basophils # 0.0 Sodium 135 L Potassium 4.3 Chloride 108 Carbon Dioxide 19 BUN 12 Creatinine 0.84 Est GFR ( Amer) > 60 Est GFR (Non-Af Amer) > 60 BUN/Creatinine Ratio 14 Glucose 97 Calculated Osmolality 280 Calcium 8.0 L
--- NOTE | 2016-08-25 20:02 | Anesthesia Evaluation Post Op ---
Date of Encounter: 08/25/16 Time of Encounter: 20:02 - Vital Signs Vital Signs: Vital Signs/O2 Sat, Most Current Temp Pulse Resp BP Pulse Ox 99.1 F 66 12 131/81 97 08/25/16 19:58 08/25/16 19:58 08/25/16 19:58 08/25/16 19:48 08/25/16 19:58 - Lungs Lungs: Clear Ascult./Percussion - Airway Airway: Non-obstructed - Cardiovascular Regular Rate - Mental Status Mental Status: Alert & Oriented, Answers Appropriately - Pain Pain Scale: 3 Pain Scale used: Numeric (1 - 10) - Nausea Vomiting Nausea Vomiting: Not Present - Hydration Hydration: NPO, Has not voided - Discharge PostOp Status: Transfer Patient to floor
[2016-08-25] MEDS ORDERED: *HR* OxyCODONE/APAP 5/325 TABLET PO PRN (20:36)
[2016-08-25] MEDS: 0.9 % Sodium Chloride 1,000 ML IVC SCH (21:40)
[2016-08-26] MEDS ORDERED: *HR* Morphine 2 MG/ML SYRINGE IVP PRN
[2016-08-26 04:59] LABS: Basophils % 0.1 %; Hematocrit 39.6 % (35.3-44.9); Hemoglobin 12.8 g/dL (11.5-15.4); Immature Granulocytes % 0.4 % (0-4); Lymphocytes # 0.9 K/mcL (0.6-4.6); Lymphocytes % 8.8 %; Mean Corpuscular HGB Conc 32.3 g/dL (31.6-35.5); Mean Corpuscular Hemoglobin 29.1 pg (28.0-33.3); Mean Platelet Volume 9.7 fL (9.4-12.4); Monocytes # 0.2 K/mcL (0.0-1.3); Monocytes % 1.9 %; Neutrophils # 9.3 K/mcL (1.6-8.9); Platelet Count 257 K/mcL (140-400); Red Cell Distribution Width 13.1 % (11.5-14.5); Segmented Neutrophils % 88.8 %
[2016-08-26 05:11] LABS: BUN/Creatinine Ratio 14 (6-26); Blood Urea Nitrogen 12 mg/dL (7-20); Carbon Dioxide 19 mEq/L (19-29); Chloride 108 mEq/L (98-109); Glucose 97 mg/dL (70-99); Osmolality,Calculated 280 (280-300); Potassium 4.3 mEq/L (3.5-4.5); Sodium 135 mEq/L (136-145); eGFR For African Americans > 60 (> 60); eGFR For Non-African Americans > 60 (> 60)
[2016-08-26 10:56] VITALS: BP 114/61
[2016-08-26] MEDS: 0.9 % Sodium Chloride 1,000 ML IVC SCH (11:14)
== END 2016-08-26 13:49 | disposition home or self-care (01) ==
LOC: 3BNU 21:42 → EMEROO 21:42 → 3BNU 08-25 03:10
PROVIDERS: ADMIT Surgery; ATTEND Surgery